=== PATIENT | female | born 1955 | race Caucasian/White ===

== ENCOUNTER 2018-07-04 09:37 | Emergency (ER) | payer OTHER ==
[2018-07-04 09:48] VITALS: BP 162/83
--- NOTE | 2018-07-04 10:03 | EDPHY ---
General Time Seen by Provider: 07/04/18 10:02 Narrative: CLINICAL IMPRESSION: Right biceps muscle injury ASSESSMENT/PLAN: Patient is a 62-year-old female with a significant history of hypertension, hyperlipidemia, diabetes and depression who presents with complaint of acute right upper arm pain after trying to open heavy compartment on [employer]. Patient is nontoxic-appearing, she is uncomfortable appearing however not toxic- appearing. Physical examination reveals tenderness to palpation of the mid biceps, small firm area of tissue palpated; patient was able to flex and extend the arm under resistance, limited secondary to pain however no evidence of a complete biceps tendon rupture. She had no trauma to suggest fracture, dislocation or bony injury. There were no other findings to suggest compartment syndrome, upper extremity DVT or neurovascular compromise. Her history and physical examination is most consistent with right biceps muscle injury, possible partial tear. The patient was placed in a sling, CMS remained intact. Patient declined pain medication in the emergency department as she has to drive, she was given a small prescription for Douglas for more severe pain , she will otherwise continue Tylenol and ibuprofen for less severe pain. She will continue sling until follow-up with Orthopedic surgery for comfort, ortho referral given. This did occur at work, she understands the importance of follow-up with workman's comp. Return precautions discussed-patient to return to the emergency Department for significantly worsening or uncontrolled pain, significant swelling, numbness or tingling of the extremity, paleness or coolness of her digits, fever or for any other concerning symptom. The patient verbalizes understanding and she is in agreement with this plan. DIFFERENTIAL DX: Differential diagnosis including but not limited to biceps rupture, biceps tear , compartment syndrome, contusion, strain, fracture ED COURSE: 1025: Case discussed with Dr. Diana CHIEF COMPLAINT: Right upper arm pain HPI: Patient is a 62-year-old female with a significant history of hypertension, hyperlipidemia, diabetes mellitus and depression who presents to the emergency department with acute right bicep pain. Patient is a regional company truck driver for [employer], she reports she was trying to lift a very heavy compartment door when she felt a sudden pop in her mid right biceps. She immediately experienced pain. She was able to continue her route down to [place] back however was experiencing increased pain and brought here by her glycerin supervisor. Patient denies any previous injury or direct trauma to this arm. She does report a similar issue with her left upper extremity that she was able to have physical therapy with full recovery. Patient has not tried taking anything for pain. She reports limited flexion and extension secondary to pain however is able to move her arm. Denies any significant swelling or numbness or tingling of the upper extremity. PAST MEDICAL HISTORY: Hypertension, hyperlipidemia, diabetes, depression Family History: Not contributory Social History: Former smoker, denies illicit drug use. ROS: A full 10 point review of systems was negative except for those mentioned in HPI. PHYSICAL EXAM: General Appearance: Alert, uncomfortable appearing however not toxic-appearing. HENT: Normocephalic, atraumatic. External ears are normal. Nares are clear, mucosa is pink. Oropharynx is clear. Eyes: PERRLA, EOMI intact. Conjunctiva pink, no pallor or injection. Neck: Supple, nontender, no lymphadenopathy, no midline pain, FROM. Respiratory: There are no retractions, lungs are clear to auscultation. Cardiac: Regular rate and rhythm, no murmurs or gallops. Gastrointestinal: Abdomen is soft, nontender, bowel sounds normal, no masses/ hernia, no rigidity, guarding or focal peritoneal findings. Skin: Warm, dry, no rashes, no nodules on palpation. Upper Extremities: Left upper extremity is unremarkable. Intact distal pulses , Full range of motion intact, no tenderness, no ecchymosis or edema. Right upper extremity reveals tenderness palpation in her right mid upper arm along her biceps muscle, there is a small firmness in tissue in the mid biceps with associated tenderness. Patient is able to flex and extend under resistance however this does increase her pain. She has no tenderness in the shoulder or elbow, she is able to pronate and supinate without difficulty. The radial, ulnar and median nerves were all tested. Radial nerve: Patient is able to extend wrist and fingers of the local joints. Ulnar nerve: Patient is able to abduct all fingers. Median nerve patient is able to oppose thumb to pinky. Lower Extremities: Intact distal pulses, No edema, No tenderness, No cyanosis, full range of motion intact, No calf tenderness bilaterally. MEDICAL DECISION MAKING: Patient was seen independently. Secondary supervising physician at time of evaluation was Dr. Diana, he did not evaluate this patient however we did discuss this case and plan of care. Diagnosis: Right biceps injury. Summary: See Assessment and Plan for summary of ED visit Clinical lab tests: Not applicable. Independent visualization of images, tracing, or specimens: Not applicable. Decision to obtain medical records or history from someone other than the patient: No Review / Summarize previous medical records: Yes Discussed patient with another provider: Yes, Dr. Diana Patient Progress: Stable, discharge. - History Smoking Status: Former smoker - Objective Vital Signs: Initial Vital Signs Temperature (C) 36.8 C 07/04/18 09:44 Heart Rate 81 07/04/18 09:44 Respiratory Rate 19 07/04/18 09:44 Blood Pressure 162/83 H 07/04/18 09:44 O2 Sat (%) 93 07/04/18 09:44 O2 Delivery Mode Room Air Allergies/Adverse Reactions: morphine Allergy (Verified 07/04/18 09:48) Home Medications: Medication Instructions Recorded Hydrocodone/APAP 5/325 [Douglas 1 - 2 tab PO Q4H PRN #10 tab 07/04/18 5/325 (*)] Metformin HCl 07/04/18 Departure - Departure Disposition: Home, Routine, Self-Care Clinical Impression: Injury of biceps brachii muscle Condition: Good Instructions: Musculoskeletal Pain (ED) Additional Instructions: DISCHARGE INSTRUCTIONS FROM YOUR DOCTOR Thank you for visiting our emergency department today. Please keep in mind that discharge from the emergency department does not mean that there is nothing wrong - it simply means that we have not identified an emergency condition that requires further evaluation or treatment in the hospital. You should always plan to follow up with primary care for re-evaluation of your condition in the next 2-3 days. If you have been referred to a specialist, please call as soon as possible ( today or tomorrow) to schedule your follow up appointment at the appropriate time; please call to schedule appointment with Orthopedic surgery, you have been given a referral. Rest, no heavy lifting, pushing, pulling, carrying with the affected arm. Apply ice on and off to the painful area, whichever feels better. Wear the sling as applied on and off as applied until follow-up. Gentle range of motion exercises several times daily to prevent your shoulder from stiffening up -- pendulum exercises as we discussed. Avoid prolonged immobilization as we discussed as shoulder injuries are prone to "frozen shoulder" which is a significant complication and requires intensive physical therapy to rehabilitate. For pain control: You may take Tylenol, I recommend 500-1000 mg every 6-8 hours as needed. Take with food and a full glass of water. Stop taking if this is upsetting her stomach. Do not exceed 3000 mg in a 24 hr period. You may also take ibuprofen, recommend 400 mg every 6 hr. Take with food and a full glass of water. Stop taking if this upsets her stomach. Do not exceed 2400 mg in a 24 hr period. You have been prescribed Douglas which is a narcotic. Please do not drive or operate machinery while taking this medication as it may make you drowsy. It may also be habit forming. This medication can also cause constipation, recommend taking 100 mg of Colace twice daily while taking this medication. This medication also contains Tylenol, please do not take other Tylenol containing products with this medication. Continue your regular medication as prescribed. Call and schedule with a primary care provider for a follow-up appointment and to establish care for your primary care needs. Return for increased or unmanageable pain, inability to move the shoulder or neck, fever, chills, redness, warmth, swelling, numbness, tingling or weakness of the arm, loss of glove sewer strength, coolness of the fingertips, chest pain, shortness of breath, or for any other new, worsening or worrisome symptoms. People present with illnesses and injuries in different ways, and it is always possible that we have missed something. You may always return for re-evaluation if symptoms worsen or if they are not improving or if you develop new/different symptoms. Again, thank you for choosing our emergency department. We hope that you feel better. Referrals: Britney Ramos MD [Medical Doctor] - 2-3 days, call for appt. Prescriptions: Hydrocodone/APAP 5/325 [Douglas 5/325 (*)] 1 - 2 tab PO Q4H PRN #10 tab PRN Reason: Pain, Moderate
== END 2018-07-04 10:43 | disposition home or self-care (01) ==
DX: S46.101A Unspecified injury of muscle, fascia and tendon of long head of biceps, right arm, initial encounter (principal); I10 Essential (primary) hypertension; E11.9 Type 2 diabetes mellitus without complications; E78.5 Hyperlipidemia, unspecified; X50.0XXA Overexertion from strenuous movement or load, initial encounter; Y99.0 Civilian activity done for income or pay
CPT/HCPCS: A4565